=== PATIENT | male | born 1955 | race American Indian/Alaskan Native ===

== ENCOUNTER 2019-06-02 17:29 | Observation (INO) | payer SELFPAY ==
[2019-06-02 17:55] LABS: Basophils # (Auto) 0.1 K/mm3 (0.0-0.1); Basophils % (Auto) 0.8 % (0.0-1.8); Eosinophils # (Auto) 0.2 K/mm3 (0.0-0.4); Eosinophils % (Auto) 1.8 % (0.0-4.3); Hematocrit 42.3 % (35.5-45.6); Hemoglobin 14.3 gm/dl (11.8-15.2); Lymphocytes # (Auto) 2.9 K/mm3 (1.2-5.4); Lymphocytes % (Auto) 27.8 % (13.4-35.0); Mean Corpuscular HGB Conc 34 % (32-34); Mean Corpuscular Volume 89 fl (84-94); Monocytes # (Auto) 0.9 K/mm3 (0.0-0.8); Monocytes % (Auto) 8.3 % (0.0-7.3); Platelet Count 205 K/mm3 (140-440); Red Blood Count 4.77 M/mm3 (3.65-5.03); Red Cell Distribution Width 13.1 % (13.2-15.2)
[2019-06-02 18:06] LABS: INR 0.98 (0.87-1.13)
--- NOTE | 2019-06-02 18:09 | Consultation ---
History of Present Illness History of present illness: [facility] Date of Service:06/02/2019 17:48:16 Impression: Townsend Palsy Comments: 64-year-old male with past medical history significant for hypertension and diabetes who presented with right facial droop and slurred speech LMN type. 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 No other significant disabling deficits.. Video End Time: 06/02/2019 18:04:47 CT head showed no acute hemorrhage or acute core infarct. Advanced imaging was not obtained as the presentation was not suggestive of Large Vessel Occlusive Disease. ER Physician notified of the decision on thrombolytics management on 06/02/2019 18:04:50 Our recommendations are outlined below. Recommendations: Activate Stroke Protocol Admission/Order Set Stroke/Telemetry Floor Neuro Checks Bedside Swallow Eval DVT Prophylaxis IV Fluids, Normal Saline Head of Bed Below 30 Degrees Euglycemia and Avoid Hyperthermia (PRN Acetaminophen) prednisone 60 mg daily for 7 days Lipid Panel to Be Obtained, if Not Done in the Last Three Months Therapies: Physical Therapy, Occupational Therapy, Speech Therapy Assessment When Applicable Dysphaghia Screen: Swallow Evaluation, Bedside NPO Until Swallow Evaluation Disposition: Follow up with Teleneurology Follow up Sign Out: Discussed with Emergency Department Provider History of Present Illness: 64-year-old male with past medical history significant for hypertension and diabetes who presented with right facial droop and slurred speech. His significant other talk to him at 4:00 and he was doing fine and about 20 minutes later he found her slurred on the phone. He had right facial droop. Denies any focal deficits or parasthesias. CT head showed no acute hemorrhage or acute core infarct. Examination: 1A: Level of Consciousness - Alert; keenly responsive+ 0 1B: Ask Month and Age - Both Questions Right+ 0 1C: Blink Eyes & Squeeze Hands - Performs Both Tasks+ 0 2: Test Horizontal Extraocular Movements - Normal+ 0 3: Test Visual Mason - No Visual Loss+ 0 4: Test Facial Palsy (Use Grimace if Obtunded) - Unilateral Complete paralysis (upper/lower face)+ 3 5A: Test Left Arm Motor Drift - No Drift for 10 Seconds+ 0 5B: Test Right Arm Motor Drift - No Drift for 10 Seconds+ 0 6A: Test Left Leg Motor Drift - No Drift for 5 Seconds+ 0 6B: Test Right Leg Motor Drift - No Drift for 5 Seconds+ 0 7: Test Limb Ataxia (FNF/Heel-Beauchamp) - No Ataxia+ 0 8: Test Sensation - Normal; No sensory loss+ 0 9: Test Language/Aphasia - Normal; No aphasia+ 0 10: Test Dysarthria - Mild-Moderate Dysarthria: Slurring but can be understood+ 1 11: Test Extinction/Inattention - No abnormality+ 0 NIHSS Score:4 Patient was informed the Neurology Consult would happen via TeleHealth consult by way of interactive audio and video telecommunications and consented to receiving care in this manner. Due to the immediate potential for life-threatening deterioration due to underlying acute neurologic illness, I spent 35 minutes providing critical care. This time includes time for face to face visit via telemedicine, review of medical records, imaging studies and discussion of findings with providers, the patient and/or family. Dr Remi Perez [facility] Case [id number] Medications and Allergies Allergies Allergy/AdvReac Type Severity Reaction Status Date / Time No Known Allergies Allergy Unverified 06/02/19 17:32 Results - Laboratory Findings CBC and BMP: 06/02/19 17:46 Abnormal Lab Findings: Abnormal Labs 06/02/19 17:46 RDW 13.1 L [place] % (Auto) 8.3 H [place] # 0.9 H
[2019-06-02 18:10] LABS: BUN/Creatinine Ratio 14; Blood Urea Nitrogen 14 mg/dL (9-20); Calcium 9.5 mg/dL (8.4-10.2); Hemolysis Index 12
--- NOTE | 2019-06-02 18:12 | Cat Scan Report ---
NONENHANCED CT SCAN OF THE BRAIN: INDICATION: neuro deficits <6hrs or sx present upon awakening. TECHNIQUE: Routine CT head without contrast. Sagittal and coronal reformatted images were obtained. A ll CT scans at this location are performed using CT dose reduction for ALARA by means of automated ex posure control. COMPARISON: None. FINDINGS: BRAIN / INTRACRANIAL CONTENTS: Hemorrhage:No intracranial hemorrhage; no subarachnoid hemorrhage Stroke mimics: No subdural or epidural hematoma or space taking lesion Acute/subacute territorial infarction: Jackson-white matter interface: No blurring; normal Insular cortex: Normal Basal ganglia: Normal Wedge shaped parenchymal low density area: Not present Cortical sulci: Not effaced Lacunar infarctions: None Vasculopathy: Dense middle cerebral artery sign: Not present Internal carotid artery terminus: Normal Basilar artery:Normal Middle cerebral artery branches in the sylvian fissure (Dot sign): Normal Calcified embolus: Not present ASPECT score: Not applicable Chronic lesions:None White matter: Isolated white matter lesion is seen in the right frontal lobe probably due to chronic ischemia. Craniocervical junction:No significant abnormality Orbits:No significant abnormality Paranasal sinuses/mastoids:No significant abnormality Additional findings: None IMPRESSION: No acute subacute infarction This exam was performed as part of a code stroke protocol. The exam was completed at [facility] on 06/02/2019 5:01 PM Eastern standard time. The exam was reviewed at 4:05 PM Central standard time out procedure and Maryjane Blanco was notified at 5:06 PM Central standard time. Signer Name: Max Machado MD Signed: 06/02/2019 6:08 PM Workstation Name: [id number]
[2019-06-02 18:19] LABS: Alanine Aminotransferase 13 units/L (7-56); Albumin 4.5 g/dL (3.9-5)
[2019-06-02 18:21] LABS: Bilirubin,Direct < 0.2 mg/dL (0-0.2)
--- NOTE | 2019-06-02 18:41 | Emergency Department Report ---
HPI - General Chief Complaint: Neuro Symptoms/Deficit Time Seen by Provider: 06/02/19 17:44 - HPI HPI: [id number] [place] male presented to the emergency department from home as a code stroke. The patient developed some slurred speech and left-sided facial drooping about 1.5 hours prior to arrival. He denies any headache, vision change, numbness, chest pain, shortness of breath or any extremity weakness. He did not take anything for her symptoms prior to presentation. He has a past mental history of diabetes and hypertension. Denies any tobacco use or illicit drug use. ED Past Medical Hx - Past Medical History Hx Hypertension: Yes Hx Diabetes: Yes - Surgical History Additional Surgical History: HERNIA SURGERY AND LEFT SHOULDER - Social History Smoking Status: Never Smoker Substance Use Type: None - Medications Home Medications: Home Medications Medication Instructions Recorded Confirmed Last Taken Type Amoxicillin 500 mg PO TID 06/02/19 06/02/19 Unknown History Gabapentin 300 mg PO DAILY 06/02/19 06/02/19 Unknown History Olmesartan Medoxomil 20 mg PO DAILY 06/02/19 06/02/19 Unknown History Synjardy Xr 5-1,000 mg Tablet 5 mg PO DAILY 06/02/19 06/02/19 Unknown History ED Review of Systems ROS: Stated complaint: SLURRED SPEECH/FACE TINGLE Other details as noted in HPI Comment: All other systems reviewed and negative Constitutional: denies: chills, fever Eyes: denies: eye pain, vision change ENT: denies: ear pain, throat pain Respiratory: denies: cough, shortness of breath Cardiovascular: denies: chest pain, palpitations Gastrointestinal: denies: abdominal pain, vomiting Genitourinary: denies: dysuria, discharge Musculoskeletal: denies: back pain, arthralgia Skin: denies: rash, lesions Neurological: other (facial droop, slurred speech). denies: headache Physical Exam - Physical Exam Vital Signs: Vital Signs 06/02/19 18:05 Temperature 98 F Pulse Rate 72 Respiratory 16 Rate Blood Pressure 149/81 [Left] O2 Sat by Pulse 96 Oximetry Physical Exam: GENERAL: The patient is well-developed well-nourished. HEENT: Normocephalic. Atraumatic. Patient has moist mucous membranes. EYES: Extraocular motions are intact. Pupils equal and reactive to light bilaterally. No nystagmus. NECK: Supple. Trachea is midline. CHEST/LUNGS: Clear to auscultation. There is no respiratory distress noted. HEART/CARDIOVASCULAR: Regular. There is no tachycardia. There is no murmur. ABDOMEN: Abdomen is soft, nontender. Patient has normal bowel sounds. There is no abdominal distention. SKIN:Skin is warm and dry. . NEURO: The patient is awake, alert, and oriented. The patient is cooperative. There is a very slight left-sided facial droop. Mild dysarthria. No pronator drift. No dysmetria. MUSCULOSKELETAL: There is no tenderness or deformity. There is no limitation range of motion. There is no evidence of acute injury. ED Course Vital Signs 06/02/19 18:05 Temperature 98 F Pulse Rate 72 Respiratory 16 Rate Blood Pressure 149/81 [Left] O2 Sat by Pulse 96 Oximetry - Consultations Consultation #1: 06/02/19 22:32 The patient was seen by the telemedicine neurologist, Dr. Perez, immediately upon the patient's return from CT imaging of the head. The patient was given a NIH stroke scale of 4 by the neurologist. He then called after his examination and spoke with me. He feels that the patient's symptoms may be consistent with Carr's palsy but recommends admission and MRI for further evaluation. ED Medical Decision Making - Lab Data Result diagrams: 06/02/19 17:46 06/02/19 17:46 - EKG Data -: EKG Interpreted by Me EKG shows normal: sinus rhythm, axis, intervals (prolonged IL interval), QRS complexes, ST-T waves (early repolarization) Rate: normal - EKG Data When compared to previous EKG there are: previous EKG unavailable Interpretation: other (sinus rhythm, prolonged IL interval, early repolarization) - Radiology Data Radiology results: report reviewed NONENHANCED CT SCAN OF THE BRAIN: INDICATION: neuro deficits <6hrs or sx present upon awakening. TECHNIQUE: Routine CT head without contrast. Sagittal and coronal reformatted images were obtained. All CT scans at this location are performed using CT dose reduction for ALARA by means of automated exposure control. COMPARISON: None. FINDINGS: BRAIN / INTRACRANIAL CONTENTS: Hemorrhage:No intracranial hemorrhage; no subarachnoid hemorrhage Stroke mimics: No subdural or epidural hematoma or space taking lesion Acute/subacute territorial infarction: Jackson-white matter interface: No blurring; normal Insular cortex: Normal Basal ganglia: Normal Wedge shaped parenchymal low density area: Not present Cortical sulci: Not effaced Lacunar infarctions: None Vasculopathy: Dense middle cerebral artery sign: Not present Internal carotid artery terminus: Normal Basilar artery:Normal Middle cerebral artery branches in the sylvian fissure (Dot sign): Normal Calcified embolus: Not present ASPECT score: Not applicable Chronic lesions:None White matter: Isolated white matter lesion is seen in the right frontal lobe probably due to chronic ischemia. Craniocervical junction:No significant abnormality Orbits:No significant abnormality Paranasal sinuses/mastoids:No significant abnormality Additional findings: None IMPRESSION: No acute subacute infarction - Medical Decision Making This patient presented as a code stroke secondary to a left-sided facial droop and dysarthria that started about 1.5 hours prior to presentation. The patient was immediately taken for a CT scan of the head that resulted as negative for any acute bleed, shift, mass, ischemia or large territorial infarct. The patient was seen by the telemedicine neurologist who gave him a NIH stroke scale of 4. He felt that the patient may be having Carr's palsy and recommended admission for further evaluation and MRI. On my examination the patient does no t appear to have any upper facial paralysis. He had mild dysarthria without any impressive facial droop or nasolabial fold paresis. His labs have been unremarkable. The patient will be admitted to the hospital for further evaluation and treatment was accepted for admission by hospitalist, Dr. Flannery. - Differential Diagnosis CVA, TIA, Carr's palsy Critical Care Time: No Critical care attestation.: If time is entered above; I have spent that time in minutes in the direct care of this critically ill patient, excluding procedure time. ED Disposition Clinical Impression: CVA (cerebral vascular accident) Qualifiers: Laterality of affected vessel: unspecified HTN (hypertension) Qualifiers: Hypertension type: essential hypertension Qualified Code(s): I10 - Essential (primary) hypertension Disposition: OP ADMIT IP TO THIS HOSP Is pt being admited?: Yes Condition: Serious Time of Disposition: 22:35
--- NOTE | 2019-06-02 19:09 | History and Physical Report ---
History of Present Illness Chief complaint: I feel weak and I could not talk History of present illness: 64-year-old male with HTN, DM presents to ED for evaluation. Patient was in his usual state of health today and experienced a sudden onset of slurred speech with left-sided facial drooping about 2 hours prior prior to arrival to [facility]. Patient transported to [facility] via private vehicle. Patient seen and evaluated in the emergency department and found to have symptoms consistent with CVA. A code stroke was initiated in the emergency department. Tele-neurology was consulted. Patient was deemed not to be a candidate for TPA. Patient placed in observation status and admitted to medical floor and initiated on CVA protocol. Patient denies fever, chills, chest pain, palpitations, shortness shortness of breath, recent ill contacts, head trauma. No prior admission for review. All listed medication reconciled at time of admission. Advanced care planning conducted in ED. Past History Past Medical History: diabetes, hypertension Past Surgical History: hernia repair, Other (Shoulder surgery) Social history: , lives with family. denies: smoking, alcohol abuse, prescription drug abuse Family history: diabetes, hypertension Medications and Allergies Allergies Allergy/AdvReac Type Severity Reaction Status Date / Time No Known Allergies Allergy Unverified 06/02/19 17:32 Home Medications Medication Instructions Recorded Confirmed Last Taken Type Amoxicillin 500 mg PO TID 06/02/19 06/02/19 Unknown History Gabapentin 300 mg PO DAILY 06/02/19 06/02/19 Unknown History Olmesartan Medoxomil 20 mg PO DAILY 06/02/19 06/02/19 Unknown History Synjardy Xr 5-1,000 mg Tablet 5 mg PO DAILY 06/02/19 06/02/19 Unknown History Review of Systems Constitutional: no weight gain, no fever, no chills, no night sweats Ears, nose, mouth and throat: no ear pain, no tinnitis, no decreased hearing, no nose pain, no nasal discharge Cardiovascular: no edema, no syncope, no lightheadedness Respiratory: no cough, no excessive sputum, no hemoptysis, no shortness of br eath, no dyspnea on exertion Gastrointestinal: no nausea, no vomiting, no change in bowel habits Genitourinary Male: no hematuria, no discharge, no urinary frequency, no nocturia, no genital pain Rectal: no pain, no bleeding Musculoskeletal: no neck stiffness, no shooting leg pain, no redness of joints Integumentary: no pruritis Neurological: paralysis, weakness, change in speech, no seizures, no syncope, no tremors, no lack of coordination Psychiatric: no anxiety, no memory loss, no change in sleep habits, no insomnia, no change in appetite, no disorientation Endocrine: no cold intolerance, no heat intolerance, no excessive thirst, no polyuria, no excessive sweating Hematologic/Lymphatic: no easy bruising, no easy bleeding, no lymphadenopathy, no lymphedema Allergic/Immunologic: no persistent infections, no anaphylaxis, no angioedema Exam - Constitutional Vitals: Temp Pulse Resp BP Pulse Ox 98 F 72 16 149/81 96 06/02/19 18:05 06/02/19 18:05 06/02/19 18:05 06/02/19 18:05 06/02/19 18:05 General appearance: Present: mild distress - EENT Eyes: Present: PERRL ENT: hearing intact, clear oral mucosa - Neck Neck: Present: supple, normal ROM - Respiratory Respiratory effort: normal Respiratory: bilateral: CTA - Cardiovascular Heart Sounds: Present: S1 & S2. Absent: rub, click - Extremities Extremities: pulses symmetrical, No edema Peripheral Pulses: within normal limits - Abdominal General gastrointestinal: Present: soft, non-tender, non-distended, normal bowel sounds Male genitourinary: Present: normal - Integumentary Integumentary: Present: clear, warm, dry - Musculoskeletal Musculoskeletal: left sided weakness - Psychiatric Psychiatric: appropriate mood/affect, intact judgment & insight - Neurologic Neurologic: CNII-XII intact, moves all extremities, gait normal Results - Labs CBC & Chem 7: 06/02/19 17:46 06/02/19 17:46 Labs: Abnormal lab results 06/02/19 06/02/19 Range/Units 17:46 17:46 RDW 13.1 L (13.2-15.2) % [place] % (Auto) 8.3 H (0.0-7.3) % [place] # 0.9 H (0.0-0.8) K/mm3 Glucose 106 H (75-100) mg/dL Assessment and Plan - Patient Problems (1) CVA (cerebral vascular accident) Current Visit: Yes Status: Acute Qualifiers: Laterality of affected vessel: unspecified Plan to address problem: CVA protocol: CT head, neurochecks, aspiration precautions, lipid panel, antiplatelet therapy, PT/OT, speech therapy, echo, carotid Doppler, neurology consulted in ED. (2) HTN (hypertension) Current Visit: Yes Status: Acute Qualifiers: Hypertension type: essential hypertension Qualified Code(s): I10 - Essential (primary) hypertension Plan to address problem: Monitor BP every shift, permissive hypertension overnight. (3) Diabetes Current Visit: Yes Status: Acute Plan to address problem: Consistent carbohydrate diet, sliding scale insulin, Accu-Chek, hypoglycemia pro tocol. (4) DVT prophylaxis Current Visit: Yes Status: Acute Plan to address problem: SCD to bilateral lower extremities while in bed, patient ambulatory.
[2019-06-02] MEDS ORDERED: METOCLOPRAMIDE 10 MG TAB PO PRN (19:10)
[2019-06-02] MEDS ORDERED: MAGNESIUM HYDROXIDE (MOM) ORAL LIQD UDC PO PRN (19:10)
[2019-06-02] MEDS ORDERED: ALBUTEROL 2.5 MG/3 ML NEBU IH PRN (19:10)
[2019-06-02] MEDS ORDERED: ACETAMINOPHEN 325 MG TAB PO PRN (19:10)
[2019-06-02] MEDS ORDERED: ONDANSETRON 4 MG/2 ML INJ IV PRN (19:10)
[2019-06-02] MEDS ORDERED: PROMETHAZINE 25 MG RECT SUPP PR PRN (19:10)
[2019-06-03 06:39] LABS: Chol/HDL Ratio 3.01 %
[2019-06-03] MEDS ORDERED: NON-FORMULARY EACH (Gabapentin 300 MG) PO SCH (10:00)
[2019-06-03] MEDS: ASPIRIN 325 MG TAB PO SCH (10:04)
[2019-06-03] MEDS: GABAPENTIN 300 MG CAP PO SCH (10:04)
--- NOTE | 2019-06-03 10:54 | Progress Note ---
Subjective Date of service: 06/03/19 Interval history: agree with the full stroke w/u for code stroke qwith symptoms of aphasia known risk factor of HTN wait MRI I personally reviewed the CT of head and normal suspect arterial atherosclerosis based on dense vessels so carotid u/s results and lipid profle are essential will follow and update my notes once tsting in progress ensues Objective - Vital Sign Vital Signs - 12hr 06/02/19 06/02/19 06/03/19 23:00 23:11 01:21 Temperature 97.7 F Pulse Rate 68 76 66 Respiratory 13 17 20 Rate Blood Pressure 143/70 143/70 121/70 O2 Sat by Pulse 91 97 96 Oximetry 06/03/19 05:28 Temperature 98.3 F Pulse Rate 58 L Respiratory 20 Rate Blood Pressure 129/71 O2 Sat by Pulse 97 Oximetry - Laboratory Findings CBC and BMP: 06/02/19 17:46 06/02/19 17:46 Abnormal Lab Findings: Abnormal Labs 06/02/19 06/02/19 17:46 17:46 RDW 13.1 L [place] % (Auto) 8.3 H [place] # 0.9 H Glucose 106 H
--- NOTE | 2019-06-03 16:55 | Progress Note ---
Assessment and Plan - Patient Problems (1) CVA (cerebral vascular accident) Current Visit: Yes Status: Acute Qualifiers: Laterality of affected vessel: unspecified Plan to address problem: CVA protocol: CT head, neurochecks, aspiration precautions, lipid panel, antiplatelet therapy, PT/OT, speech therapy, echo, carotid Doppler, neurology consulted in ED. (2) HTN (hypertension) Current Visit: Yes Status: Acute Qualifiers: Hypertension type: essential hypertension Qualified Code(s): I10 - Esse ntial (primary) hypertension Plan to address problem: Monitor BP every shift, permissive hypertension overnight. (3) Diabetes Current Visit: Yes Status: Acute Plan to address problem: Consistent carbohydrate diet, sliding scale insulin, Accu-Chek, hypoglycemia protocol. (4) DVT prophylaxis Current Visit: Yes Status: Acute Plan to address problem: SCD to bilateral lower extremities while in bed, patient ambulatory. History Interval history: 64-year-old male hospital days 2 with CVA. Patient convalesced well overnight. Patient had residual weakness. Physical therapy consulted. Neurology consulted. Discharge planning in a.m. Patient denies fever, chills, chest pain, palpitations, shortness of breath, productive cough, recent ill contacts. At time of my exam the patient is being evaluated by physical therapy and awaiting completion of needs assessment. No reported nursing events overnight. Lab and imaging studies reviewed. Hospitalist Physical - Constitutional Vitals: Temp Pulse Resp BP Pulse Ox 98.2 F 67 19 132/71 97 06/03/19 11:51 06/03/19 11:51 06/03/19 11:51 06/03/19 11:51 06/03/19 11:51 General appearance: Present: mild distress - EENT Eyes: Present: PERRL ENT: hearing intact - Neck Neck: Present: supple - Respiratory Respiratory: bilateral: CTA - Cardiovascular Rhythm: regular Heart Sounds: Present: S1 & S2 - Extremities Extremities: no ischemia Peripheral Pulses: within normal limits - Abdominal General gastrointestinal: soft, non-tender, non-distended - Integumentary Integumentary: Present: clear, dry - Psychiatric Psychiatric: appropriate mood/affect, cooperative - Neurologic Neurologic: CNII-XII intact, no gait normal Results - Labs CBC & Chem 7: 06/02/19 17:46 06/02/19 17:46 Labs: Laboratory Last Values WBC 10.4 K/mm3 (4.5-11.0) 06/02/19 17:46 RBC 4.77 M/mm3 (3.65-5.03) 06/02/19 17:46 Hgb 14.3 gm/dl (11.8-15.2) 06/02/19 17:46 Hct 42.3 % (35.5-45.6) 06/02/19 17:46 MCV 89 fl (84-94) 06/02/19 17:46 MCH 30 pg (28-32) 06/02/19 17:46 MCHC 34 % (32-34) 06/02/19 17:46 RDW 13.1 % (13.2-15.2) L 06/02/19 17:46 Plt Count 205 K/mm3 (140-440) 06/02/19 17:46 Lymph % (Auto) 27.8 % (13.4-35.0) 06/02/19 17:46 [place] % (Auto) 8.3 % (0.0-7.3) H 06/02/19 17:46 Eos % (Auto) 1.8 % (0.0-4.3) 06/02/19 17:46 Baso % (Auto) 0.8 % (0.0-1.8) 06/02/19 17:46 Lymph # 2.9 K/mm3 (1.2-5.4) 06/02/19 17:46 [place] # 0.9 K/mm3 (0.0-0.8) H 06/02/19 17:46 Eos # 0.2 K/mm3 (0.0-0.4) 06/02/19 17:46 Baso # 0.1 K/mm3 (0.0-0.1) 06/02/19 17:46 Seg Neutrophils % 61.3 % (40.0-70.0) 06/02/19 17:46 Seg Neutrophils # 6.3 K/mm3 (1.8-7.7) 06/02/19 17:46 PT 13.1 Sec. (12.2-14.9) 06/02/19 17:46 INR 0.98 (0.87-1.13) 06/02/19 17:46 APTT 28.0 Sec. (24.2-36.6) 06/02/19 17:46 Thrombin Time 16.0 Sec. (15.1-19.6) 06/02/19 17:46 Sodium 141 mmol/L (137-145) 06/02/19 17:46 Potassium 4.3 mmol/L (3.6-5.0) 06/02/19 17:46 Chloride 105.1 mmol/L (98-107) 06/02/19 17:46 Carbon Dioxide 23 mmol/L (22-30) 06/02/19 17:46 Anion Gap 17 mmol/L 06/02/19 17:46 BUN 14 mg/dL (9-20) 06/02/19 17:46 Creatinine 1.0 mg/dL (0.8-1.5) 06/02/19 17:46 Estimated GFR > 60 ml/min 06/02/19 17:46 BUN/Creatinine Ratio 14 % 06/02/19 17:46 Glucose 106 mg/dL (75-100) H 06/02/19 17:46 POC Glucose 94 (70-105) 06/02/19 17:46 Calcium 9.5 mg/dL (8.4-10.2) 06/02/19 17:46 Total Bilirubin 0.50 mg/dL (0.1-1.2) 06/02/19 17:54 Direct Bilirubin < 0.2 mg/dL (0-0.2) 06/02/19 17:54 Indirect Bilirubin 0.3 mg/dL 06/02/19 17:54 AST 18 units/L (5-40) 06/02/19 17:54 ALT 13 units/L (7-56) 06/02/19 17:54 Alkaline Phosphatase 65 units/L (35-129) 06/02/19 17:54 Troponin T < 0.010 ng/mL (0.00-0.029) 06/02/19 17:46 Total Protein 7.1 g/dL (6.3-8.2) 06/02/19 17:54 Albumin 4.5 g/dL (3.9-5) 06/02/19 17:54 Albumin/Globulin Ratio 1.7 % 06/02/19 17:54 Triglycerides 149 mg/dL (2-149) 06/03/19 05:50 Cholesterol 169 mg/dL (50-199) 06/03/19 05:50 LDL Cholesterol Direct 101 mg/dL (50-130) 06/03/19 05:50 HDL Cholesterol 56 mg/dL (40-59) 06/03/19 05:50 Cholesterol/HDL Ratio 3.01 % 06/03/19 05:50 TSH 1.550 mlU/mL (0.270-4.200) 06/02/19 17:54 Active Medications - Current Medications Current Medications: Generic Name Dose Route Start Last Admin Trade Name Freq PRN Reason Stop Dose Admin Acetaminophen 650 mg 06/02/19 19:10 Tylenol PO Q4H PRN Pain, Mild (1-3) Albuterol 2.5 mg 06/02/19 19:10 Proventil IH Q3HRT PRN Shortness Of Breath Aspirin 325 mg 06/03/19 10:00 06/03/19 10:04 Aspirin PO 325 mg QDAY RUCHI Administration Atorvastatin Calcium 40 mg 06/02/19 22:00 06/02/19 23:41 Lipitor PO Not Given QHS [facility] Bisacodyl 10 mg 06/02/19 19:10 Dulcolax [place] QDAY PRN Constipation Gabapentin 300 mg 06/03/19 10:00 06/03/19 10:04 Gabapentin PO 300 mg DAILY [facility]CH[facility] Administration Insulin Human Lispro 0 unit 06/03/19 18:00 Humalog SUB-Q Q6HR [facility] Protocol Magnesium Hydroxide 30 ml 06/02/19 19:10 Milk Of Magnesia PO Q4H PRN Constipation Metoclopramide HCl 10 mg 06/02/19 19:10 Reglan PO Q6H PRN Nausea And Vomiting Ondansetron HCl 4 mg 06/02/19 19:10 Zofran IV Q8H PRN Nausea And Vomiting Promethazine HCl 25 mg 06/02/19 19:10 Phenergan [place] Q6H PRN Nausea And Vomiting Sodium Chloride 10 ml 06/02/19 19:10 Sodium Chloride Flush Syringe 10 Ml IV PRN PRN LINE FLUSH
--- NOTE | 2019-06-03 16:58 | Progress Note ---
Assessment and Plan - Patient Problems (1) CVA (cerebral vascular accident) Current Visit: Yes Status: Acute Qualifiers: Laterality of affected vessel: unspecified (2) HTN (hypertension) Current Visit: Yes Status: Acute Qualifiers: Hypertension type: essential hypertension Qualified Code(s): I10 - Essential (primary) hypertension (3) Diabetes Current Visit: Yes Status: Acute (4) DVT prophylaxis Current Visit: Yes Status: Acute History Interval history: 64-year-old male hospital days 2 with CVA. Patient convalesced well overnight. Patient had residual weakness. Physical therapy consulted. Neurology consulted. Discharge planning in a.m. Patient denies fever, chills, chest pain, palpitations, shortness of breath, productive cough, recent ill contacts. At time of my exam the patient is being evaluated by physical therapy and awaiting completion of needs assessment. No reported nursing events overnight. Lab and imaging studies reviewed. Hospitalist Physical - Constitutional Vitals: Temp Pulse Resp BP Pulse Ox 98.2 F 67 19 132/71 97 06/03/19 11:51 06/03/19 11:51 06/03/19 11:51 06/03/19 11:51 06/03/19 11:51 General appearance: Present: mild distress Results - Labs CBC & Chem 7: 06/02/19 17:46 06/02/19 17:46 Labs: Laboratory Last Values WBC 10.4 K/mm3 (4.5-11.0) 06/02/19 17:46 RBC 4.77 M/mm3 (3.65-5.03) 06/02/19 17:46 Hgb 14.3 gm/dl (11.8-15.2) 06/02/19 17:46 Hct 42.3 % (35.5-45.6) 06/02/19 17:46 MCV 89 fl (84-94) 06/02/19 17:46 MCH 30 pg (28-32) 06/02/19 17:46 MCHC 34 % (32-34) 06/02/19 17:46 RDW 13.1 % (13.2-15.2) L 06/02/19 17:46 Plt Count 205 K/mm3 (140-440) 06/02/19 17:46 Lymph % (Auto) 27.8 % (13.4-35.0) 06/02/19 17:46 [place] % (Auto) 8.3 % (0.0-7.3) H 06/02/19 17:46 Eos % (Auto) 1.8 % (0.0-4.3) 06/02/19 17:46 Baso % (Auto) 0.8 % (0.0-1.8) 06/02/19 17:46 Lymph # 2.9 K/mm3 (1.2-5.4) 06/02/19 17:46 [place] # 0.9 K/mm3 (0.0-0.8) H 06/02/19 17:46 Eos # 0.2 K/mm3 (0.0-0.4) 06/02/19 17:46 Baso # 0.1 K/mm3 (0.0-0.1) 06/02/19 17:46 Seg Neutrophils % 61.3 % (40.0-70.0) 06/02/19 17:46 Seg Neutrophils # 6.3 K/mm3 (1.8-7.7) 06/02/19 17:46 PT 13.1 Sec. (12.2-14.9) 06/02/19 17:46 INR 0.98 (0.87-1.13) 06/02/19 17:46 APTT 28.0 Sec. (24.2-36.6) 06/02/19 17:46 Thrombin Time 16.0 Sec. (15.1-19.6) 06/02/19 17:46 Sodium 141 mmol/L (137-145) 06/02/19 17:46 Potassium 4.3 mmol/L (3.6-5.0) 06/02/19 17:46 Chloride 105.1 mmol/L (98-107) 06/02/19 17:46 Carbon Dioxide 23 mmol/L (22-30) 06/02/19 17:46 Anion Gap 17 mmol/L 06/02/19 17:46 BUN 14 mg/dL (9-20) 06/02/19 17:46 Creatinine 1.0 mg/dL (0.8-1.5) 06/02/19 17:46 Estimated GFR > 60 ml/min 06/02/19 17:46 BUN/Creatinine Ratio 14 % 06/02/19 17:46 Glucose 106 mg/dL (75-100) H 06/02/19 17:46 POC Glucose 94 (70-105) 06/02/19 17:46 Calcium 9.5 mg/dL (8.4-10.2) 06/02/19 17:46 Total Bilirubin 0.50 mg/dL (0.1-1.2) 06/02/19 17:54 Direct Bilirubin < 0.2 mg/dL (0-0.2) 06/02/19 17:54 Indirect Bilirubin 0.3 mg/dL 06/02/19 17:54 AST 18 units/L (5-40) 06/02/19 17:54 ALT 13 units/L (7-56) 06/02/19 17:54 Alkaline Phosphatase 65 units/L (35-129) 06/02/19 17:54 Troponin T < 0.010 ng/mL (0.00-0.029) 06/02/19 17:46 Total Protein 7.1 g/dL (6.3-8.2) 06/02/19 17:54 Albumin 4.5 g/dL (3.9-5) 06/02/19 17:54 Albumin/Globulin Ratio 1.7 % 06/02/19 17:54 Triglycerides 149 mg/dL (2-149) 06/03/19 05:50 Cholesterol 169 mg/dL (50-199) 06/03/19 05:50 LDL Cholesterol Direct 101 mg/dL (50-130) 06/03/19 05:50 HDL Cholesterol 56 mg/dL (40-59) 06/03/19 05:50 Cholesterol/HDL Ratio 3.01 % 06/03/19 05:50 TSH 1.550 mlU/mL (0.270-4.200) 06/02/19 17:54 Active Medications - Current Medications Current Medications: Generic Name Dose Route Start Last Admin Trade Name Freq PRN Reason Stop Dose Admin Acetaminophen 650 mg 06/02/19 19:10 Tylenol PO Q4H PRN Pain, Mild (1-3) Albuterol 2.5 mg 06/02/19 19:10 Proventil IH Q3HRT PRN Shortness Of Breath Aspirin 325 mg 06/03/19 10:00 06/03/19 10:04 Aspirin PO 325 mg QDAY RUCHI Administration Atorvastatin Calcium 40 mg 06/02/19 22:00 06/02/19 23:41 Lipitor PO Not Given QHS [facility] Bisacodyl 10 mg 06/02/19 19:10 Dulcolax [place] QDAY PRN Constipation Gabapentin 300 mg 06/03/19 10:00 06/03/19 10:04 Gabapentin PO 300 mg DAILY [facility] Administration Insulin Human Lispro 0 unit 06/03/19 18:00 Humalog SUB-Q Q6HR [facility] Protocol Magnesium Hydroxide 30 ml 06/02/19 19:10 Milk Of Magnesia PO Q4H PRN Constipation Metoclopramide HCl 10 mg 06/02/19 19:10 Reglan PO Q6H PRN Nausea And Vomiting Ondansetron HCl 4 mg 06/02/19 19:10 Zofran IV Q8H PRN Nausea And Vomiting Promethazine HCl 25 mg 06/02/19 19:10 Phenergan [place] Q6H PRN Nausea And Vomiting Sodium Chloride 10 ml 06/02/19 19:10 Sodium Chloride Flush Syringe 10 Ml IV PRN PRN LINE FLUSH
[2019-06-03] MEDS: INSULIN LISPRO 100 UNIT/ML SUB-Q SCH (18:10)
[2019-06-04] MEDS: INSULIN LISPRO 100 UNIT/ML SUB-Q SCH ×4 (03:30→17:23)
--- NOTE | 2019-06-04 09:54 | Discharge Summary ---
Providers - Providers Date of Admission: 06/02/19 19:10 Attending physician: ELVIA DUKES 06/02/19 19:10 Occupational Therapy Evaluate and Treat [CONS] Routine Comment: Reason For Exam: Neuro deficits Physical Therapy Evaluation and Treat [CONS] Routine Comment: Reason For Exam: Neuro deficits 06/02/19 21:22 Consult to Physician [CONS] Routine Comment: Consulting Provider: JASMIN JIMÉNEZ Physician Instructions: Reason For Exam: cva Primary care physician: [employer] Hospitalization Condition: Serious - Discharge Diagnoses (1) CVA (cerebral vascular accident) Status: Acute Qualifiers: Laterality of affected vessel: unspecified (2) HTN (hypertension) Status: Acute Qualifiers: Hypertension type: essential hypertension Qualified Code(s): I10 - Essential (primary) hypertension (3) Diabetes Status: Acute (4) DVT prophylaxis Status: Acute Exam - Constitutional Vitals: Temp Pulse Resp BP Pulse Ox 98.6 F 63 18 125/65 96 06/04/19 06:10 06/04/19 06:10 06/04/19 06:10 06/04/19 06:10 06/04/19 06:10 Plan Follow up with: PRIMARY MD DES [Primary Care Provider] - 3-5 Days
[2019-06-04] MEDS: ASPIRIN 325 MG TAB PO SCH (09:55)
[2019-06-04] MEDS: GABAPENTIN 300 MG CAP PO SCH (09:55)
[2019-06-04 18:49] VITALS: BP 148/83
== END 2019-06-04 19:05 | disposition home or self-care (01) ==
LOC: ED 17:29 → 3A 19:10
PROVIDERS: ADMIT Internal Medicine; ATTEND Internal Medicine
DX: I63.9 Cerebral infarction, unspecified (principal); I10 Essential (primary) hypertension; E11.9 Type 2 diabetes mellitus without complications; R29.810 Facial weakness; Z88.1 Allergy status to other antibiotic agents; Z79.899 Other long term (current) drug therapy
CPT/HCPCS: 36415; 70450; 80048; 80061; 80076; 82962; 84443; 84484; 85025; 85610; 85670; 85730; 93005; 93010; 97162; 99284; A9270; G0378